=== PATIENT | male | born 1950 | race Caucasian/White ===

== ENCOUNTER 2022-10-19 18:34 | Inpatient (IN) | payer OTHER ==
[2022-10-19 19:24] VITALS: BMI 25.4
[2022-10-19] MEDS ORDERED: P-EPHED 60MG/TRIPROLIDI 2.5MG TABLET PO PRN (22:33)
[2022-10-19] MEDS ORDERED: ACETAMINOPHEN 325 MG TABLET (FP) PO PRN ×2 (22:33)
[2022-10-19] MEDS ORDERED: IBUPROFEN 600 MG TABLET (FP) PO PRN (22:33)
[2022-10-19] MEDS ORDERED: NALOXONE HCL (KLOXXADO) 8 MG SPRAY NS PRN (22:33)
[2022-10-19] MEDS ORDERED: MAGNESIUM HYDROX 2400MG/30ML ORAL SUSPENSION 30 ML CUP PO PRN (22:33)
[2022-10-19] MEDS ORDERED: guaiFENesin 200 MG/10 ML 10 ML UNIT-DOSE CUPS PO PRN (22:33)
[2022-10-19] MEDS ORDERED: POLYETHYLENE GLYCOL (HEALTHYLAX) 3350 17 GM PACKET PO PRN (22:33)
[2022-10-19] MEDS ORDERED: MAG HYDROX/AL HYDROX/SIMETH 30 ML UNIT-DOSE CUP PO PRN (22:33)
[2022-10-19] MEDS ORDERED: BISMUTH SUBSALICYLATE 524 MG/30 ML PO PRN (22:33)
[2022-10-19] MEDS ORDERED: NALOXONE HCL 0.4 MG/ML VIAL IM PRN (22:33)
[2022-10-19] MEDS ORDERED: LOPERAMIDE HCL 2 MG CAPSULE PO PRN (22:33)
[2022-10-19] MEDS ORDERED: NICOTINE POLACRILEX 2 MG GUM BUC PRN (22:33)
[2022-10-19] MEDS ORDERED: ONDANSETRON *ODT* 4 MG TABLET SL PRN (22:33)
[2022-10-19] MEDS ORDERED: DICYCLOMINE HCL 10 MG CAPSULE PO PRN (22:33)
[2022-10-19] MEDS ORDERED: IBUPROFEN 400 MG TABLET (FP) PO PRN (22:33)
[2022-10-19] MEDS ORDERED: BENZOCAINE/MENTHOL (CHLORASEPTIC ) LOZENGE MM PRN (22:33)
[2022-10-19] MEDS ORDERED: NICOTINE 10 MG CARTRIDGE (INHALER) IH PRN (22:33)
[2022-10-20] MEDS: hydrOXYzine PAMOATE 25 MG CAPSULE (FP) PO PRN ×2 (02:43→22:27)
[2022-10-20] MEDS ORDERED: PATIENT'S OWN MEDICATION (NON-FORMULARY) (Atenolol/Chlorthalidone [Atenolol-Chlorthalidone PO SCH (10:00)
[2022-10-20] MEDS: PRENATAL VITAMINS W/ FOLIC ACID TABLET (FP) PO SCH (10:11)
[2022-10-20] MEDS: NICOTINE 7 MG/24 HOURS TOPICAL PATCH TD SCH (10:11)
[2022-10-20] MEDS: LISINOPRIL 20 MG TABLET PO SCH (10:50)
[2022-10-20] MEDS: ATENOLOL 50 MG TABLET (FP) PO SCH (11:46)
[2022-10-20] MEDS: CHLORTHALIDONE 25 MG TABLET PO SCH (11:47)
[2022-10-20 11:49] LABS: HEMATOCRIT 43.1 % (35.4-49); HEMOGLOBIN 14.2 GM/dL (11.7-16.9); MCH 28.7 pg (25.7-33.7); MCHC 32.9 g/dl (32.0-35.9); MEAN CELL VOLUME 87.3 fl (80-96); MEAN PLT VOLUME 8.2 fl (7.5-11.1); PLATELET COUNT 205 10^3/uL (134-434); RBC 4.94 M/mm3 (4.00-5.60); RDW 14.2 % (11.9-15.9); WHITE BLOOD COUNT 8.2 K/mm3 (4.0-10.0)
[2022-10-20 12:29] LABS: ALBUMIN 3.2 g/dl (3.4-5.0)
[2022-10-20 12:34] LABS: BILIRUBIN,TOTAL 0.7 mg/dL (0.2-1); TOT PROT 6.3 g/dl (6.4-8.2)
[2022-10-20 12:41] LABS: BLOOD UREA NITROGEN 27.7 mg/dL (7-18); CALCIUM 8.6 mg/dL (8.5-10.1); CREATININE 1.2 mg/dL (0.55-1.3)
[2022-10-20] MEDS: MELATONIN 5 MG TABLETS PO PRN (22:23)
[2022-10-20] MEDS: THIAMINE HCL 100 MG TABLET (FP) PO SCH (22:23)
[2022-10-21] MEDS ORDERED: methaDONE HCL 10 MG TABLET (FOR DETOX USE ONLY) PO ONE (10:00)
[2022-10-21] MEDS: CHLORTHALIDONE 25 MG TABLET PO SCH (10:04)
[2022-10-21] MEDS: PRENATAL VITAMINS W/ FOLIC ACID TABLET (FP) PO SCH (10:04)
[2022-10-21] MEDS: LISINOPRIL 20 MG TABLET PO SCH (10:04)
[2022-10-21] MEDS: ATENOLOL 50 MG TABLET (FP) PO SCH (10:04)
[2022-10-21] MEDS: NICOTINE 7 MG/24 HOURS TOPICAL PATCH TD SCH (10:08)
[2022-10-21] MEDS: hydrOXYzine PAMOATE 25 MG CAPSULE (FP) PO PRN (18:07)
[2022-10-21] MEDS: THIAMINE HCL 100 MG TABLET (FP) PO SCH (22:17)
[2022-10-21] MEDS: MELATONIN 5 MG TABLETS PO PRN (22:17)
[2022-10-22] MEDS: PRENATAL VITAMINS W/ FOLIC ACID TABLET (FP) PO SCH (10:19)
[2022-10-22] MEDS: NICOTINE 7 MG/24 HOURS TOPICAL PATCH TD SCH (10:20)
[2022-10-22] MEDS: LISINOPRIL 20 MG TABLET PO SCH (10:20)
[2022-10-22] MEDS: ATENOLOL 50 MG TABLET (FP) PO SCH (10:20)
[2022-10-22] MEDS: CHLORTHALIDONE 25 MG TABLET PO SCH (10:20)
[2022-10-22] MEDS: cloNIDine HCL 0.1 MG TABLET PO PRN ×2 (12:57→22:11)
[2022-10-22] MEDS: hydrOXYzine PAMOATE 25 MG CAPSULE (FP) PO PRN ×2 (12:57→22:10)
[2022-10-22 16:58] VITALS: RESP 18
[2022-10-22] MEDS: THIAMINE HCL 100 MG TABLET (FP) PO SCH (22:10)
[2022-10-22] MEDS: MELATONIN 5 MG TABLETS PO PRN (22:10)
[2022-10-23] MEDS ORDERED: methaDONE HCL 10 MG TABLET (FOR DETOX USE ONLY) PO ONE (10:00)
[2022-10-23] MEDS: PRENATAL VITAMINS W/ FOLIC ACID TABLET (FP) PO SCH (10:21)
[2022-10-23] MEDS: NICOTINE 7 MG/24 HOURS TOPICAL PATCH TD SCH (10:21)
[2022-10-23] MEDS: ATENOLOL 50 MG TABLET (FP) PO SCH (10:21)
[2022-10-23] MEDS: CHLORTHALIDONE 25 MG TABLET PO SCH (10:21)
[2022-10-23] MEDS: LISINOPRIL 20 MG TABLET PO SCH (10:21)
[2022-10-23] MEDS: hydrOXYzine PAMOATE 25 MG CAPSULE (FP) PO PRN ×2 (10:23→22:16)
[2022-10-23] MEDS: THIAMINE HCL 100 MG TABLET (FP) PO SCH (22:15)
[2022-10-23] MEDS: MELATONIN 5 MG TABLETS PO PRN (22:15)
[2022-10-24 09:03] VITALS: BP 156/86; PULSE 77; TEMP 97.7
== END 2022-10-24 09:17 | disposition home or self-care (01) | DRG 897 ==
LOC: YASAS 18:34 → UNDOADMIN 22:38 → Y3N 22:38
PROVIDERS: ADMIT Allergy & Immunology; ATTEND Surgery
PROC: HZ2ZZZZ Detoxification Services for Substance Abuse Treatment (ICD-10-PCS; principal; 2022-10-19)
DX: F11.23 Opioid dependence with withdrawal (principal); F17.210 Nicotine dependence, cigarettes, uncomplicated; I10 Essential (primary) hypertension; E86.0 Dehydration
CPT/HCPCS: 36415; 80053; 84520; 85027; 86780; 87811; C9803-CS; U0003; U0005

== ENCOUNTER 2023-01-21 14:18 | Inpatient (IN) | payer OTHER ==
[2023-01-21 16:49] VITALS: BMI 26.7
[2023-01-21] MEDS ORDERED: IBUPROFEN 400 MG TABLET (FP) PO PRN (18:44)
[2023-01-21] MEDS ORDERED: cloNIDine HCL 0.1 MG TABLET PO PRN (18:44)
[2023-01-21] MEDS ORDERED: DICYCLOMINE HCL 10 MG CAPSULE PO PRN (18:44)
[2023-01-21] MEDS ORDERED: LOPERAMIDE HCL 2 MG CAPSULE PO PRN (18:44)
[2023-01-21] MEDS ORDERED: POLYETHYLENE GLYCOL (HEALTHYLAX) 3350 17 GM PACKET PO PRN (18:44)
[2023-01-21] MEDS ORDERED: BISMUTH SUBSALICYLATE 524 MG/30 ML PO PRN (18:44)
[2023-01-21] MEDS ORDERED: IBUPROFEN 600 MG TABLET (FP) PO PRN (18:44)
[2023-01-21] MEDS ORDERED: ACETAMINOPHEN 325 MG TABLET (FP) PO PRN (18:44)
[2023-01-21] MEDS ORDERED: MAGNESIUM HYDROX 2400MG/30ML ORAL SUSPENSION 30 ML CUP PO PRN (18:44)
[2023-01-21] MEDS ORDERED: NALOXONE HCL (KLOXXADO) 8 MG SPRAY NS PRN (18:44)
[2023-01-21] MEDS ORDERED: MAG HYDROX/AL HYDROX/SIMETH 30 ML UNIT-DOSE CUP PO PRN (18:44)
[2023-01-21] MEDS ORDERED: guaiFENesin 600 MG TABLET.ER (FP) PO PRN (18:44)
[2023-01-21] MEDS ORDERED: NALOXONE HCL 0.4 MG/ML VIAL IM PRN (18:44)
[2023-01-21] MEDS ORDERED: BENZONATATE 200 MG CAPSULE PO PRN (18:44)
[2023-01-21] MEDS ORDERED: BENZOCAINE/MENTHOL (CHLORASEPTIC ) LOZENGE MM PRN (18:44)
[2023-01-21] MEDS ORDERED: NICOTINE 10 MG CARTRIDGE (INHALER) IH PRN (18:44)
[2023-01-21] MEDS ORDERED: methaDONE HCL 10 MG TABLET (FOR DETOX USE ONLY) PO ONE (19:45)
[2023-01-21] MEDS ORDERED: methaDONE HCL 10 MG TABLET (FOR DETOX USE ONLY) ONE (19:49)
[2023-01-21] MEDS: MELATONIN 5 MG TABLETS PO SCH (22:30)
[2023-01-21] MEDS: THIAMINE HCL 100 MG TABLET (FP) PO SCH (22:30)
[2023-01-22 10:06] LABS: HEMATOCRIT 45.8 % (35.4-49); HEMOGLOBIN 15.1 GM/dL (11.7-16.9); MCH 28.2 pg (25.7-33.7); MEAN CELL VOLUME 85.4 fl (80-96); MEAN PLT VOLUME 8.3 fl (7.5-11.1); PLATELET COUNT 150 10^3/uL (134-434); RBC 5.36 M/mm3 (4.00-5.60); RDW 14.2 % (11.9-15.9); WHITE BLOOD COUNT 7.1 K/mm3 (4.0-10.0)
[2023-01-22] MEDS: PRENATAL VITAMINS W/ FOLIC ACID TABLET (FP) PO SCH (10:39)
[2023-01-22 12:41] LABS: CALCIUM 9.1 mg/dL (8.5-10.1)
[2023-01-22 12:42] LABS: ALBUMIN 3.3 g/dl (3.4-5.0); BLOOD UREA NITROGEN 40.9 mg/dL (7-18)
[2023-01-22 12:45] LABS: CREATININE 1.1 mg/dL (0.55-1.3)
[2023-01-22 12:46] LABS: BILIRUBIN,TOTAL 0.5 mg/dL (0.2-1)
[2023-01-22 12:49] LABS: TOT PROT 6.5 g/dl (6.4-8.2)
[2023-01-22] MEDS: NICOTINE 14 MG/24 HOURS TOPICAL PATCH TD SCH (12:52)
[2023-01-22] MEDS: MELATONIN 5 MG TABLETS PO SCH (22:11)
[2023-01-22] MEDS: THIAMINE HCL 100 MG TABLET (FP) PO SCH (22:11)
[2023-01-23] MEDS: LISINOPRIL 20 MG TABLET PO SCH (09:56)
[2023-01-23] MEDS: PRENATAL VITAMINS W/ FOLIC ACID TABLET (FP) PO SCH (09:56)
[2023-01-23] MEDS: NICOTINE 14 MG/24 HOURS TOPICAL PATCH TD SCH (09:56)
[2023-01-23] MEDS: ATENOLOL 50 MG TABLET (FP) PO SCH (09:56)
[2023-01-23] MEDS: CHLORTHALIDONE 25 MG TABLET PO SCH (09:56)
[2023-01-23] MEDS ORDERED: methaDONE HCL 10 MG TABLET (FOR DETOX USE ONLY) PO ONE (10:00)
[2023-01-23] MEDS ORDERED: PATIENT'S OWN MEDICATION (NON-FORMULARY) (Atenolol/Chlorthalidone [Atenolol-Chlorthalidone PO SCH (10:00)
[2023-01-23] MEDS ORDERED: diazePAM 5 MG TABLET PO ONE (15:00)
[2023-01-23] MEDS: BACLOFEN 10 MG TABLET (FP) PO PRN (18:10)
[2023-01-23] MEDS: THIAMINE HCL 100 MG TABLET (FP) PO SCH (21:38)
[2023-01-23] MEDS: MELATONIN 5 MG TABLETS PO SCH (21:38)
[2023-01-24] MEDS: BACLOFEN 10 MG TABLET (FP) PO PRN (08:44)
[2023-01-24 09:19] VITALS: PULSE 74; RESP 18
[2023-01-24] MEDS: PRENATAL VITAMINS W/ FOLIC ACID TABLET (FP) PO SCH (10:22)
[2023-01-24] MEDS: LISINOPRIL 20 MG TABLET PO SCH (10:22)
[2023-01-24] MEDS: CHLORTHALIDONE 25 MG TABLET PO SCH (10:23)
[2023-01-24] MEDS: ATENOLOL 50 MG TABLET (FP) PO SCH (10:23)
[2023-01-24] MEDS: NICOTINE 14 MG/24 HOURS TOPICAL PATCH TD SCH (10:24)
[2023-01-24] MEDS ORDERED: POTASSIUM CHLORIDE ORAL LIQUID 20 MEQ/15 ML PO ONE (10:41)
[2023-01-24 13:04] VITALS: BP 116/82; TEMP 97.8
== END 2023-01-24 15:27 | disposition home or self-care (01) | DRG 897 ==
LOC: YASAS 14:18 → Y3N 20:28
PROVIDERS: ADMIT Allergy & Immunology; ATTEND Surgery
PROC: HZ2ZZZZ Detoxification Services for Substance Abuse Treatment (ICD-10-PCS; principal; 2023-01-21)
DX: F11.23 Opioid dependence with withdrawal (principal); F17.210 Nicotine dependence, cigarettes, uncomplicated; I10 Essential (primary) hypertension
CPT/HCPCS: 36415; 80053; 85027; 86780; 87811; 93005; 93010; C9803-CS; J0475; U0003; U0005